=== PATIENT | male | born 1980 | race African-American/Black ===

== ENCOUNTER → 2018-06-28 | Outpatient (CLI) | payer OTHER | END | disposition home or self-care (01) | LOC: KCIC MRI 13:36 | DX: M19.011 Primary osteoarthritis, right shoulder (principal); M25.811 Other specified joint disorders, right shoulder; I10 Essential (primary) hypertension; Z87.891 Personal history of nicotine dependence | CPT/HCPCS: 73221 ==

== ENCOUNTER → 2019-02-13 | Outpatient (CLI) | payer OTHER ==
[2014-12-30 10:45] VITALS: BP 144/97
[~2019-02-13] MED LIST: AMLO5TAB10 PO; LISI-130 PO; METO100T7 PO
--- NOTE | 2019-02-13 11:33 | KCIC ---
PQRS Compliance statement: One or more of the following individualized dose reduction techniques were utilized for this examination: 1. Automated exposure control. 2. Adjustment of the mA and/or kV according to patient size. 3. Use of iterative reconstruction technique. Indication: Preop exam. TECHNIQUE: Noncontrast CT of the bilateral shoulders with multiplanar reformats. COMPARISON: None FINDINGS: Right shoulder: Severe glenohumeral joint space narrowing is seen with subarticular sclerosis. No acute fracture or dislocation. Well-corticated calcific densities are seen at the attachment site of the supraspinatus tendon which may represent calcific tendinitis. Acromial clavicular joint is intact. No joint effusion. No right axillary adenopathy. Visualized right lung is clear. Left shoulder: Severe glenohumeral joint space narrowing is seen with subarticular sclerosis. No acute fracture or dislocation. Acromioclavicular joint is intact. No joint effusion. No left axillary adenopathy. Visualized left lung is clear. IMPRESSION: Bilateral advanced shoulder joint osteoarthritis. Electronically signed by: Matias Al DO (02/13/2019 11:30 AM) [facility]
== END | disposition home or self-care (01) ==
LOC: KCIC CT 09:15
PROVIDERS: ATTEND Orthopaedic Surgery
DX: Z01.818 Encounter for other preprocedural examination (principal); M19.012 Primary osteoarthritis, left shoulder; M19.011 Primary osteoarthritis, right shoulder
CPT/HCPCS: 73200

== ENCOUNTER 2020-07-01 07:54 | Emergency (ER) | payer MEDICAID, OTHER ==
[~2020-07-01] VITALS: Ht 137.2 cm; Wt 50.0 kg
[2020-07-01] MEDS ORDERED: IV NORMAL SALINE 1000ML BAG 1,000 ML IV ONE (08:30)
--- NOTE | 2020-07-01 08:31 | PHYS DOC ---
Past Medical History Past Medical History: Hypertension, Other Additional Past Medical Histor: dwarfism Past Surgical History: Hip Replacement Additional Past Surgical Histo: right Smoking Status: Current Some Day Smoker Alcohol Use: Heavy Drug Use: None General Adult EDM: Chief Complaint: SHORTNESS OF BREATH HPI: HPI: The history was obtained from the patient. Patient is a 39-year-old male with PMH significant for hypertension, dwarfism who presents with a chief complaint of cough and congestion. Patient states over the past 2 weeks he is felt more fatigued. He is noted hot and cold chills. He denies any known exposure to coronavirus. He does note a cough. He does note shortness of breath and chest pain over the past 2 weeks. He states it occurs only when he wakes up and last approximately 3 minutes and resolves on its own. He denies any exertional component to chest pain. Denies any history of cardiac disease. He does note that he has had decrease in appetite and oral intake. He denies any syncope. He states he drinks alcohol occasionally. He denies any abdominal pain. Denies any neck stiffness. States his greatest concern is that he may have coronavirus. No other complaints. Review of Systems: Review of Systems: Constitutional: Positive for fatigue. Eyes: Denies change in visual acuity. [] HENT: Denies nasal congestion or sore throat. [] Respiratory: Positive for cough and shortness of breath Cardiovascular: Denies chest pain or edema. [] GI: Denies abdominal pain, nausea, vomiting, bloody stools or diarrhea. [] : Denies dysuria. [] Musculoskeletal: Denies back pain or joint pain. [] Integument: Denies rash. [] Neurologic: Denies headache, focal weakness or sensory changes. [] Endocrine: Denies polyuria or polydipsia. [] Lymphatic: Denies swollen glands. [] Psychiatric: Denies depression or anxiety. [] Heart Score: HEART Score for Chest Pain: HEART Score for Chest Pain Response (Comments) Value History Slighlty/Non-Suspicious 0 ECG Normal 0 Age < 45 0 Risk Factors 1 or 2 Risk Factors 1 Troponin < Normal Limit 0 Total 1 Risk Factors: Risk Factors: DM, Current or recent (<one month) smoker, HTN, HLP, family history of CAD, obesity. Risk Scores: Score 0 - 3: 2.5% MACE over next 6 weeks - Discharge Home Score 4 - 6: 20.3% MACE over next 6 weeks - Admit for Clinical Observation Score 7 - 10: 72.7% MACE over next 6 weeks - Early Invasive Strategies Allergies: Allergies: Allergies Coded Allergies Type Severity Reaction Last Updated Verified No Known Drug Allergies 12/30/14 No Physical Exam: PE: Constitutional: Well developed, well nourished, no acute distress, non-toxic appearance. [] HENT: Normocephalic, atraumatic, bilateral external ears normal, oropharynx moist, no oral exudates, nose normal. [] Eyes: PERRLA, EOMI, injected conjunctivo-bilaterally, no discharge Neck: Normal range of motion, no tenderness, supple, no stridor. [] Cardiovascular:Heart rate regular rhythm, no murmur [] Lungs & Thorax: Bilateral breath sounds clear to auscultation [] Abdomen: no tenderness, no masses, no pulsatile masses. [] Skin: Warm, dry, no erythema, no rash. [] Back: No tenderness, no CVA tenderness. [] Extremities: No tenderness, no cyanosis, no clubbing, ROM intact, no edema. [] Neurologic: Alert and oriented X 3, normal motor function, normal sensory fu nction, no focal deficits noted. [] Psychologic: Affect normal, judgement normal, mood normal. [] Current Patient Data: Vital Signs: Vital Signs Date Time Temp Pulse Resp B/P (MAP) Pulse Ox O2 Delivery O2 Flow Rate FiO2 07/01/20 08:10 97.9 70 18 128/95 (106) 98 Room Air 97.9 EKG: EKG: EKG consistent with normal sinus rhythm. Ventricular rate of 67 bpm. [place] normal. Intervals normal. No acute ischemic changes appreciated. No previous EKG for comparison. Radiology/Procedures: Radiology/Procedures: [][facility] [address] [place], [place] [id number] IMAGING REPORT Signed PATIENT: AYUSH QUINTANILLAOUNT: [id number] : 1980 LOCATION: ER AGE: 39 SEX: M EXAM STATUS: REG ER ORD. PHYSICIAN: ANGELY GRACE DO REASON: SOB, PROCEDURE: CHEST AP ONLY Single AP view of the chest. Comparison: 03/11/2008. Indication: Shortness of breath Findings: Interval reverse right shoulder arthroplasty. There is severe degenerative change of the left shoulder. The heart is enlarged but stable. There is no pneumothorax or effusion. No air space or interstitial disease. Impression: 1. No acute cardiopulmonary process. Electronically signed by: Kiko Domínguez MD (07/01/2020 9:20 AM) [id number] DICTATED and SIGNED BY: KIKO DOMÍNGUEZ MD DATE: 07/01/20919 Course & Med Decision Making: Course & Med Decision Making Pertinent Labs and Imaging studies reviewed. (See chart for details) Patient is a 39-year-old male who presents with chief complaint of fatigue and generalized weakness. Initial vital signs unremarkable. Exam noted above. Chest x-ray shows no focal abnormality. EKG unremarkable. Patient was given IV fluids. Did not feel there is any indication for laboratory analysis. His symptoms are most likely viral in nature. He does have injected conjunctive a bilaterally. COVID testing was obtained and is currently pending. He will be notified of positive results. At this time he is requesting discharge home. I do feel this is overall reasonable. Chest pain not consistent with ACS. Low risk heart score. PERC negative. Return precautions discussed and understood. He was instructed to self quarantine at home. He was instructed to follow-up with his primary care physician in the next 2 to 3 days. Stable for discharge home. COVID-19 CRITERIA: The patient was evaluated during the global COVID-19 pandemic, and that diagnosis was suspected/considered upon their initial presentation. Their evaluation, treatment and testing was consistent with current guidelines for patients who present with complaints or symptoms that may be related to COVID-19. Dragon Disclaimer: Dragon Disclaimer: This electronic medical record was generated, in whole or in part, using a voice recognition dictation system. Departure Departure Disposition: 01 HOME, SELF-CARE Condition: GOOD Referrals: Chapito NASCIMENTO MD (PCP) Additional Instructions: You have been tested for or diagnosed with COVID-19. It is an infection caused by a new type of coronavirus. COVID-19 will cause cold-like or mild flu symptoms in most. It can cause more severe symptoms like problems breathing in some. There is no treatment for COVID-19. The body will clear the infection over time. Self-care will help to ease discomfort. Steps to Take: Self-Care Rest as needed. Healthy habits may help you feel better. Steps include: Choose healthy foods including fruits and vegetables. Drink water throughout the day. Get plenty of sleep each night. If you smoke, try to quit. It may ease breathing. Avoid alcohol. Keep Others Healthy The virus can spread to others. Droplets are released every time you sneeze or cough. The droplets can get into the mouth, nose, or eyes of people near you and lead to infection. To lower the chances of spreading COVID-19 to others: Stay at home until your doctor has said it is safe to leave. If you tested positive this will mean staying isolated until both of the following are true: At least 7 days have passed since the start of illness. You are free of fever for at least 72 hours without the use of medicine. During this time: - Avoid public areas, events, or transportation. Do not return to work or school until your doctor has said it is safe to do so. - Call ahead if you need to go to a medical center. Let them know you may have COVID-19. It will help them guide you where to go. They may also ask you to wear a facemask when you come to the office. - If you call for emergency medical services, let them know you may have COVID- 19. While at home: - Try to avoid close contact with others. Stay about 6 feet away. - If possible, spend most of your time in a separate room from others. - Use a face mask if you will be in close contact with others such as sharing a room or vehicle. - Have someone wipe down common surfaces in the home. Use household spray machine loader every day on areas like doorknobs, counters, or sinks. - Cough or sneeze into a tissue. Throw the tissue away right after use. If a tissue is not available, cough or sneeze into your elbow. - Wash your hands often. Wash them after sneezing or coughing. Use soap and water and wash for at least 20 seconds. Alcohol based hand bisque cleaner can be used if soap and water is not available. - Do not prepare food for others. Avoid sharing personal items like forks, spoons, or toothbrushes. - Avoid close contact with pets while you are sick. There is no evidence of the virus passing to pets. This is a safety step until more is known about this virus. Isolation can be frustrating. Social interaction can help. Keep in touch with friends and family through phone and tech options. You can still interact with others in your home, just keep a safe distance of about 6 feet. Follow-up: Your doctors office will check in with you to see if there are any changes in your health. You may be asked to keep track of symptoms to share with them. They will also let you know when you are clear to be in public again. Problems to Look Out For: Contact your doctor if your recovery is not going as you expect. Get emergency care if you have problems such as: - Trouble breathing - Nonstop chest pain or pressure - Changes in awareness, confusion, or problems waking - Lips or face have bluish color - Worsening of symptoms If you think you have an emergency, call for emergency medical services right away. As taken from [facility] Justicifation of Admission Dx: Justifications for Admission: Justification of Admission Dx: N/A COVID-19 Assessment: COVID-19 Patient Risks: Age 65 or older: No Sign of co-morbidity: No Exp to person + for COVID: No Exp to PUI: No Travel from affected area: No Lower respiratory symptoms: Yes Fever: No Other: No PPE Use: Full PPE with N95 mask or PAPR: Yes ANGELY GRACE DO Jul 01, 2020 08:31
[2020-07-01] MEDS ORDERED: ACETAMINOPHEN 500 MG TABLET PO ONE (09:00)
[2020-07-01] MEDS ORDERED: ONDANSETRON PF 4 MG/2 ML VIAL. IVP ONE (09:00)
--- NOTE | 2020-07-01 09:23 | RAD ---
Single AP view of the chest. Comparison: 03/11/2008. Indication: Shortness of breath Findings: Interval reverse right shoulder arthroplasty. There is severe degenerative change of the left shoulder. The heart is enlarged but stable. There is no pneumothorax or effusion. No air space or interstitial disease. Impression: 1. No acute cardiopulmonary process. Electronically signed by: Kiko Domínguez MD (07/01/2020 9:20 AM) [id number]
[2020-07-01 10:00] VITALS: BP 125/88
--- NOTE | 2020-07-01 12:10 | EKG ---
[facility] [address] [place] [address] Test Date: 2020-07-01 Test Time: 08:07:20 Pat Name: AYUSH QUINTANILLA Department: Room: Gender: Owner Operator: : 1980 Requested By: ANGELY GRACE Order Number: [id number] Reading MD: Measurements Intervals [place] Rate: 67 P: 22 DE: 130 QRS: 49 QRSD: 76 T: 27 QT: 384 QTc: 409 Interpretive Statements SINUS RHYTHM NO SPECIFIC ECG ABNORMALITIES RI6.01 No previous ECG available for comparison
--- NOTE | 2020-07-03 10:32 | NUR ---
Called patient at [phone] and discussed his negative COVID 19 test results. Pt verbalized understanding. (Oskar Barraza RN)
== END 2020-07-01 10:47 | disposition home or self-care (01) ==
LOC: ER 07:54
DX: R05 Cough (principal); Z20.828 Contact with and (suspected) exposure to other viral communicable diseases; R06.02 Shortness of breath; R07.89 Other chest pain; R09.81 Nasal congestion; I10 Essential (primary) hypertension; F17.200 Nicotine dependence, unspecified, uncomplicated; F10.10 Alcohol abuse, uncomplicated; Z98.890 Other specified postprocedural states
CPT/HCPCS: 71045; 93005; 96361; 96374; 99285; J2405; J7030; U0003

== ENCOUNTER → 2021-05-04 | Outpatient (CLI) | payer MEDICAID ==
[2021-02-24 11:09] VITALS: BP 127/93
[~2021-05-04] MED LIST changes: +AMLO-186 PO; -AMLO5TAB10 PO; +APIX2.5T PO; +ASPI-630 PO; +FURO20TA3 PO; +Folic Acid PO; +LISI20TA18 PO; +METO-247 PO; +MULT1TAB92 PO; +THIA100T22 PO
--- NOTE | 2021-05-04 12:35 | CARD ---
MR#: [id number] Date of Study: 05/04/2021 Ordering Physician: JOSELUIS HOFFMAN, Referring Physician: JOSELUIS HOFFMAN, Tech: Rachna Smith [facility] APPROVED REPORT EXAM: Two-dimensional and M-mode echocardiogram with Doppler and color Doppler. Other Information Quality : AverageHR: 73bpm Rhythm : NSR INDICATION Hypertension/HCVD RISK FACTORS Hypertension 2D DIMENSIONS RVDd4.0 (2.9-3.5cm)Left Atrium(2D)3.0 (1.6-4.0cm) IVSd0.9 (0.7-1.1cm)Aortic Root(2D)3.4 (2.0-3.7cm) LVDd3.8 (3.9-5.9cm)LVOT Diameter2.3 (1.8-2.4cm) PWd0.8 (0.7-1.1cm)LVDs2.5 (2.5-4.0cm) FS (%) 35.2 %SV41.1 ml LVEF(%)65.3 (>50%) Aortic Valve AoV Peak Peter.109.6cm/sAoV VTI22.4cm AO Peak GR.4.8mmHgLVOT Peak Peter.109.4cm/s AO Mean GR.3mmHgAVA (VMAX)4.00cm2 Pulmonary Valve PV Peak Usmzlyfe32.3cm/s Pulmonary Vein S1 Dkuqafxw67.4cm/sD2 Efkqffjp31.5cm/s LEFT VENTRICLE The left ventricle is normal size. There is normal left ventricular wall thickness. The left ventricu lar systolic function is normal. The ejection fraction is 60-65%. There is normal LV segmental wall m otion. The left ventricular diastolic function and filling is normal for age. RIGHT VENTRICLE The right ventricle is normal size. There is normal right ventricular wall thickness. The right ventr icular systolic function is normal. ATRIA The left atrium size is normal. The right atrium size is normal. The interatrial septum is intact wit h no evidence for an atrial septal defect or patent foramen ovale as noted on 2-D or Doppler imaging. AORTIC VALVE The aortic valve is normal in structure and function. Doppler and Color Flow revealed no significant aortic regurgitation. There is no significant aortic valvular stenosis. MITRAL VALVE The mitral valve is normal in structure and function. There is no evidence of mitral valve prolapse. There is no mitral valve stenosis. Doppler and Color Flow revealed no mitral valve regurgitation note d. TRICUSPID VALVE The tricuspid valve is normal in structure and function. Doppler and Color Flow revealed no tricuspid valve regurgitation noted. There is no tricuspid valve stenosis. PULMONIC VALVE The pulmonary valve is normal in structure and function. Doppler and Color Flow revealed no pulmonic valvular regurgitation. GREAT VESSELS The aortic root is normal in size. The ascending aorta is normal in size. The IVC is normal in size a nd collapses >50% with inspiration. PERICARDIAL EFFUSION There is no evidence of significant pericardial effusion. Critical Notification Critical Value: No <Conclusion> The left ventricular systolic function is normal. The ejection fraction is 60-65%. There is normal LV segmental wall motion. There is no evidence of significant pericardial effusion. Signed by : Ger Gerard, Electronically Approved : 05/04/2021 12:34:39
== END ==
LOC: ECHO 08:55
PROVIDERS: ATTEND Internal Medicine Cardiovascular Disease
DX: I48.0 Paroxysmal atrial fibrillation (principal)
CPT/HCPCS: 93306